=== PATIENT | female | born 1965 | race Caucasian/White ===

== ENCOUNTER 2017-02-10 16:05 | Inpatient (IN) | payer MEDICARE ==
[~2017-02-10] VITALS: Ht 165.1 cm; Wt 67.6 kg
[~2017-02-10 16:05] MED LIST: AMOXICILLIN/POTASSIU PO; ASPIR 8181 MG PO; BENADRYL25 MG PO; BISACODYL SUPP10 MG RECTAL; CATAPRES-TTS 31 EACH TRANSDERM; CIPRO500 MG PO; CLARITIN10 MG PO; CLONIDINE0.1 PO; COMPAZINE10 MG PO; COZAAR 50 MG TA50 M2 PO; DIOVAN HCT 1601 EAC1 PO; DOMPERIDONE PO; DUREZOL5 ML OP; ENOXAPARIN40 MG/0.1 SUBQ; FLAGYL500 MG PO; FLONASE 0.05%50 MCG NASAL; HUMALOG100 UNIT/1 SUBQ; HYDRALAZINE 2525 MG PO; IRON325 PO; KEFLEX500 MG PO; KEPPRA 100100 MG/M1 PO; LEVAQUIN 500 M500 M1 PO; LEVEMIR SQ; LIPITOR10 MG PO; MIRALAX17 GM PO; MUCINEX TA600 MG/TA2 PO; NORCO 5-325 TA1 EACH PO; NORVASC 5 MG TAB5 MG PO; NOVOLOG100 UNIT/1 SQ; NOVOLOG100 UNIT/1 SUBQ; PEPCID20 MG PO; PERCOCET PO; PREDNISONE 5 MG5 M1 PO; PRILOSEC40 MG PO; PROAIR HFA8.5 GM INH; PROBIOTIC1 EAC1 PO; PROTONIX40 M1 PO; REGLAN 10 MG TA10 MG PO; SALINE NASAL SP30 ML NASAL; SINGULAIR 10 MG10 M1 PO; SYNTHROID100 MCG PO; TRAMADOL 50 MG50 MG PO; TRANSDERM-SCO1 PATC1 TD; TYLENOL325 MG PO; XANAX 0.25 MG0.25 MG PO; ZANTAC 150MG T150 MG PO; ZOCOR 10 MG TAB10 MG PO; ZOFRAN ODT4 MG PO
[2017-02-10] MEDS ORDERED: CARVEDILOL12.5 MG PO (17:07)
[2017-02-10] MEDS ORDERED: CIPROFLOXIN HC2.5 M1 OPHTHALMIC (17:08)
[2017-02-10] MEDS ORDERED: DUREZOL5 ML OPHTHALMIC (17:10)
[2017-02-10] MEDS ORDERED: ILEVRO1.7 ML OPHTHALMIC (17:12)
[2017-02-10] MEDS ORDERED: LAMICTAL100 MG PO (17:13)
[2017-02-10] MEDS ORDERED: KEPPRA 500 MG500 M1 PO (17:15)
[2017-02-10] MEDS ORDERED: ZOCOR20 MG PO (17:15)
[2017-02-10] MEDS ORDERED: ALDACTONE25 MG PO (17:16)
[2017-02-10] MEDS ORDERED: DEMADEX20 MG PO (17:17)
--- NOTE | 2017-02-10 20:00 | NUR ---
PT ARRIVED ON FLOOR DURING SHIFT CHANGE. PT IN BED WHEN THIS RN ARRIVED TO DO INITIAL ASSESSMENT. PT ABLE TO CONVERSE APPROPRIATELY, ADMISSION PAPERWORK COMPLETED AND SIGNED. ADMISSION DATABASE COMPLETED. PHOTOGRAPHS TAKEN OF PT COCCYX AND MONTSERRAT AREA, RIGHT GREAT TOE AND RIGHT HEEL AND PLACED IN CHART. PT C/O RIGHT ARM PAIN, TYLENOL GIVEN. PT HAS RAMIREZ AND IS INCONTINENT OF STOOL. PT CLEANED AND BRIEF NOT REPLACED. PT MONTSERRAT AREA VERY RED, BARRIER CREAM APPLIED. PT COOPERATIVE WITH CARES, WILL CONTINUE TO MONITOR.
[2017-02-10 21:32] VITALS: BP 152/70
[2017-02-11 04:06] LABS: HEMATOCRIT 26.3 % (37.0-47.0); HEMOGLOBIN 8.7 gm/dL (12.0-15.0); MCH 31.9 pg (26.0-34.0); MCHC 33.1 g/dL (28.0-37.0); MCV 96.6 fL (80.0-100.0); MPV 9.1 fl. (7.2-11.1); RBC 2.72 mil/uL (4.20-5.00); RDW-CV 15.6 % (10.5-14.5); WBC 9.3 thou/uL (4.0-11.0)
[2017-02-11 04:18] LABS: CALCIUM 7.6 mg/dL (8.5-10.1); CREATININE 4.2 mg/dL (0.6-1.3); POTASSIUM 4.9 mmol/L (3.5-5.1)
--- NOTE | 2017-02-11 05:24 | NUR ---
ASSUMED PT CARE AT 1930. PT ALERT AND ORIENTED X4, POLITE AND COOPERATIVE WITH CARES. ADMITTED FOR DEBILITY. EXTENSIVE HISTORY INCLUDING CVA. C DIFF PRECAUTIONS FOR CHRONIC DIARRHEA. +1 EDEMA IN LOWER EXTREMITIES. RAMIREZ TO DD WITH CLOUDY, YELLOW URINE, NEUROGENIC BLADDER. ACCUCHECKS AC AND HS. MONTSERRAT AREA RED AND EXCORIATED. NAIL TO GREAT TOE ON LEFT FOOT BLUE/BLACK. PT HAD PAIN IN RIGHT ARM, TYLENOL GIVEN. PT TAKES PILLS WHOLE WITH WATER A FEW AT A TIME WITHOUT DIFFICULTY. CALL LIGHT AND FREQUENTLY USED ITEMS WITHIN REACH. USES CALL LIGHT APPROPRIATELY. HOURLY ROUNDING IN PROGRESS, WILL CONTINUE TO MONITOR.
[2017-02-11 07:50] VITALS: BP 165/78
--- NOTE | 2017-02-11 10:14 | NUR ---
Nutrition: Consult received. Pt admitted to rehab with debility. Eating 25% of BKFST. 2gm Na diet. Wt is stable, 190s. H/o DM, neuropathy, gastroparesis, PEG. Pressure ulcer on coccyx. Albumin 3.5. +BM yday. Low risk at this time. Will follow po intake and labs weekly.
--- NOTE | 2017-02-11 11:00 | NUR ---
Nutrition follow up: Per RN, pt on HD. Pt is familiar with renal and is requesting one. RD ordered Renal diet.
--- NOTE | 2017-02-11 15:31 | NUR ---
WOUND NURSE: PATIENT NOT AVAILABLE SHE IS SPEAKING TO , BUT WOUND CARE BASED ON PHOTOS IS FOLLOWS: PATIENT WITH RED, MACULAR RASH WITH IRRITATION NOTED ON BILATERAL BUTTOCKS AND MOST LIKELY RELATED TO INCONTINENCE. RECOMMENDED PHYTOPLEX AF MOISTURE BARRIER EVERY SHIFT. PATIENT WITH LESS THAN DIME SIZED AREA OF ECCHYMOSIS ON RIGHT HEEL -- NO INTERVENTION SUGGESTED AT THIS TIME. PATIENT WITH BLACKENED LT GREAT TOE -- SUSPECT TRAUMA RELATED, BUT INTACT AND STABLE SCAB IN PLACE -- NO INTERVENTION RECOMMENDED AT THIS TIME.
--- NOTE | 2017-02-11 16:19 | NUR ---
SW met with pt to complete initial assessment, introduce self, and SW role on rehab unit. Pt alert and oriented and talkative. Pt lives in a mobile home with her who works and her son who doesn't work and helps take care of pt. Pt has a shower chair, walker, bsc, and a wc but the wc is older and borrowed so she said it is not in great shape. Pt had HH services through [facility] in the past but she said that she was disappointed that the nurse concentrated on the meds every visit and she wanted to do more PT so she said she may want to try a different HH agency. Pt is new to dialysis and SW discussed possibility of SW needing to assist with arranging dialysis at [place]. Pt lives near [place] and would want to remain with Dr Solis's group so she said she heard about dialysis clinic on [address] that she would want to see if she could go there if needed. Pt said she is also dealing with the change of needing a marie catheter and many stressors in her life over the last few years. SW and pt discussed resources such as food pantrys, information on renal diet, etc. Pt expressed desire to find out more about how to develop a will and that she wants to have a plan B for her body disposal if she is not able to donate her body to science if she has to have her toe amputated. Pt said she does not want to have to have her family deal with too many things upon her . Pt said she would want to have hospice services near the end of her life if that is presented to her. SW to continue to follow to assist with safe dc planning.
--- NOTE | 2017-02-11 16:34 | NUR ---
ASSUMED CARE AT 0730. ALERT ORIENTED PLEASANT COOPERATIVE. HX OF DEBILITY. TRANSFERS WITH 1 ASSIST G BELT WALKER. TAKES MEDS WITH WATER WITHOUT DIFFICULTY. FEEDS SELF APPETITE FAIR AT BREAKFAST GOOD AT LUNCH DIET CHANGED TO RENAL PER PT. REQUEST. PT. ON DIALYSIS THREE TIMES PER WEEK. EDEMA PRESENT BLES ELEVATED WHILE UP IN RECLINER AND NOT PARTICIPATING IN THERAPIES. DOES HAVE RAMIREZ CATHETER TO DD BAG CLOUDY YELLOW URINE TO DD BAG. HX OF NEUROGENIC BLADDER. REDNESS EXCORIATION PERIANAL AREA NO OPEN AREA. OBTAINED PHYTOPLEX ANTIFUNGAL OINTMENT FOR MONTSERRAT AREA AFTER WOUND NURSE HERE THIS AFTERNOON. PARTICIPATIN THERAPIES THROUGHOUT THE DAY. MOVED TO ROOM 328 FROM 325 THIS AFTERNOON.USES CALL LIGHT APPROPRIATELY FOR ASSISTANCE.
[2017-02-11 17:42] VITALS: BP 181/84
[2017-02-11 20:28] VITALS: BP 150/77
--- NOTE | 2017-02-11 23:18 | NUR ---
ASSUMED CARE AT 1930. PATIENT S/P DELIBITY. RESTING IN BED. ABLE TO TURN SIDE TO SIDE. POSITIONED WITH PILLOWS. TAKES PILLS WHOLE WITH PUDDING, FEEDS SELF THE MEDS ONCE THEY ARE PLACED INTO THE PUDDING. REFUSED STOOL SOFTENER. DIALYSIS PORT TO RT CHEST C/D/I. INCONTINENT OF SOFT STOOL WITH APPEARANCE OF SOME UNDIGESTED FOOD, SKIN CARE PERFORMED, LINENS CHANGED AND IMMEDIATELY HAD ANOTHER INCONTINENT STOOL DURING LINEN CHANGE. SKIN CARE PERFORMED AGAIN. EDEMA TO BILAT LEGS. RAMIREZ DRAINING MARIANA URINE. RAMIREZ CARE ALSO DONE WITH SKIN CARE. HISTORY OF NEUROGENIC BLADDER. BUTTOCKS PINK, ANTIFUNGAL MOISTURE BARRIER APPLIED. POSITIONED ON SIDE. HOURLY ROUNDS CONTINUE. BED ALARM ON. CALL LITE IN REACH. DENIES PAIN.
--- NOTE | 2017-02-12 05:43 | NUR ---
SLEPT MOST OF THE NIGHT. TURNS SELF EASILY IN BED, AND WAS FOUND NEARLY ON STOMACH. NO FURTHER INCONTINENCE OF STOOL EXCEPT EPISODE PREVIOUSLY DESCRIBED OF THIS WRITING. DENIES PAIN. HOURLY ROUNDS CONTINUE. BED ALARM ON. CALL LITE IN REACH.
[2017-02-12 07:30] VITALS: BP 154/73
--- NOTE | 2017-02-12 16:15 | NUR ---
ASSUMMED CARE OF PT AT 0730, PT COMPLAINED OF NAUSEA, NO EMESIS NOTED, ORDER FROM PHYSICIAN OBTAINED FOR ANTIEMETIC, MED GIVEN PT OBTAINED SOME RELIEF, PT DID EAT ALMOST 100% OF BOTH BREAKFAST AND LUNCH, PT REFUSED HER AM MEDICATIONS, DID AGREE TO GET OUT OF BED INTO CHAIR FOR LUNCH, WAS AGREEABLE TO TAKE SOME OF HER MEDICATIONS, DID TALK TO DIALYSIS NURSE AND SHE STATED I SHOULD HOLD HER COREG DUE TO UPCOMING DIALYSIS, PT WENT TO DIALYSIS AT 1400, BP ELEVATED IN DIALYSIS AND NURSE REQUESTED COREG BE GIVEN, PT HAS ACCESS IN RIGHT UPPER CHEST, EDEMA NOTED BILATERALY IN LE, LEGS ELEVATED, BILATERAL BUTTOCKS RED , ANTI FUNGAL BARRIER OINTMENT APPLIED RAMIREZ PATENT, PT HAD MODERATE INCONTINENT STOOL, PT UNAWARE THAT SHE HAD STOOL IN BED, PT BLOOD SUGARS ELEVATED, WILL INFORM PHYSICIAN ON ROUNDS, HOURLY ROUNDING COMPLETED, PARTICIPATED IN THERAPIES, ASSESSMENT COMPLETE, WILL CONTINUE TO MONITER.
[2017-02-12 18:49] VITALS: BP 132/44
[2017-02-12 21:00] VITALS: BP 149/81
--- NOTE | 2017-02-12 23:26 | NUR ---
ASSUMED CARE AT 1930. PATIENT S/P DEBILITY. SITTING IN RECLINER. VISITED WITH . TAKES PILLS WHOLE IN VANILLA PUDDING. RAMIREZ DRAINING MARIANA URINE. SOME MEDICATION TIMES ADJUSTED IN LIGHT OF GIVING THEM AROUND PATIENT'S NAUSEA THIS AM AND DIALYSIS. SEE MAR. DENIES PAIN. INCONTINENT OF STOOL, ASKS NURSING TO "CHECK HER" WHEN SHE THINKS SHE IS INCONTINENT. TOTAL CARES DONE WITH INCONTINENT STOOLS. BOTTOM RED, ANTI FUNGAL MOISTURE BARRIER APPLIED. DR. JORDAN ROUNDED, NEW ORDERS. PATIENT STATES THAT SHE OFTEN NEEDS IV MEDICINES DURING DIALYSIS FOR HER BLOOD PRESSURE. LOW DOSE SSI STARTED. PATIENT FAMILIAR WITH SSI. TURNS SELF EASILY IN BED. POSITIONED WITH PILLOWS. HOURLY ROUNDING CONTINUES. BED ALARM ON. CALL LITE IN REACH.
[2017-02-13 04:11] LABS: HEMATOCRIT 26.6 % (37.0-47.0); HEMOGLOBIN 8.9 gm/dL (12.0-15.0); MCH 31.9 pg (26.0-34.0); MCHC 33.4 g/dL (28.0-37.0); MCV 95.6 fL (80.0-100.0); RBC 2.78 mil/uL (4.20-5.00); RDW-CV 15.1 % (10.5-14.5); WBC 8.1 thou/uL (4.0-11.0)
[2017-02-13 04:22] LABS: ALBUMIN 1.9 g/dL (3.4-5.0); CALCIUM 7.4 mg/dL (8.5-10.1); CREATININE 3.4 mg/dL (0.6-1.3); MAGNESIUM 1.7 mg/dL (1.8-2.4); POTASSIUM 3.8 mmol/L (3.5-5.1); TOTAL BILIRUBIN 0.2 mg/dL (<0.1-1.0); TOTAL PROTEIN 5.3 g/dL (6.4-8.2)
--- NOTE | 2017-02-13 05:39 | NUR ---
SLEPT MOST OF THE NIGHT. INCONTINENT OF STOOL TWICE TOTAL THIS SHIFT. TURNS SELF EASILY. TAKES PILLS WITH VANILLA PUDDING. C/O HEADACHE AND NECK PAIN, APAP GIVEN WITH 0700 MEDS PER REQUEST. RAMIREZ DRAINING MARIANA URINE. HOURLY ROUNDS CONTINUE. BED ALARM ON. CALL LITE IN REACH.
[2017-02-13 07:45] VITALS: BP 164/82
--- NOTE | 2017-02-13 13:22 | CON ---
[address] [address] CONSULTATION Name: EZEQUIEL MOYA Room: [address] ADM IN M.R.#: [id number] Admission: 02/10/17 Attend Phys: Iona Gonzalez DO Discharge: Date of : 63 Report #: [id number] THIS REPORT FOR: //name// CC: Demetrius Gonzalez NEPHROLOGY CONSULTATION The patient is on the rehab unit at [facility]. She is in room 328. REASON FOR CONSULTATION: I am asked to see this 52-year-old woman who has recently become dialysis dependent and is on 3 time weekly hemodialysis. In questioning her, she states that she does not have a chronic unit as all of this is "brand new to her." She was at [facility] presenting there at [facility] on 01/28. She had shortness of breath and edema. She had a creatinine of 4.8, a glucose of 331 and a hemoglobin of 8.5. She was significantly debilitated from her chronic medical issues. She had been living independently and able to perform her activities of daily living. She is awake and alert, but her ability to recall details related to her present or past illness is a bit limited. PAST MEDICAL HISTORY: Hypertension, diabetes, obstructive sleep apnea, chronic kidney disease, but now on dialysis at this time. She has had acute renal failure. She has history of peripheral vascular disease, CVA, anemia, asthma, chronic edema, C. diff colitis, esophagitis, chronic fatigue, gastroparesis, GERD, hyperlipidemia, hypothyroidism, neuropathy, seizures, thyroid nodule, urine incontinence, benign colonic polyps and diabetic retinopathy. PAST SURGICAL HISTORY: Appendectomy, hysterectomy, colectomy, tracheostomy and an I and D of an abscess. FAMILY HISTORY: Positive for vascular disease and hypertension. SOCIAL HISTORY: She is a former tobacco user. No alcohol, no recreational drugs. She lives in a mobile home. She does have family that helps her with her activities. ALLERGIES: MARGARITA INHIBITORS, LIDOCAINE, MORPHINE, OXYCODONE, CIPROFLOXACIN, NICKEL WELL GENTAMICIN, OPIOIDS. CHRONIC MEDICATIONS: Per her reconciliation sheet showed that she has been on ferrous sulfate 325 mg daily with breakfast, simvastatin 20 mg at bedtime, carvedilol 12.5 mg b.i.d., valsartan and hydrochlorothiazide 160/25 one daily, spironolactone 25 mg 1-1/2 tablet b.i.d., aspirin 81 mg daily, acetaminophen 325 mg q. 4 p.r.n., Lamictal 25 mg daily. She is on levetiracetam 250 mg b.i.d., zolpidem 5 mg at bedtime, torsemide 40 mg b.i.d., hydrochlorothiazide 25 [place] [address] CONSULTATION Name: EZEQUIEL MOYA Room: [address] IN [facility].#: [id number] Admission: 02/10/17 Attend Phys: Iona Gonzalez DO Discharge: Date of : 63 Report #: [id number] bedtime, ciprofloxacin eyedrops 0.3% one drop q. 2 hours to right eye. She is also on Durezol 5 mL drops q. 2 hours to the right eye, fluticasone nasal spray 2 sprays daily and nepafenac 1 ophthalmologic drop in the right eye at bedtime, antacids, Mylanta or equivalent 30 mL q. 4 p.r.n., probiotic one capsule b.i.d., bisacodyl rectal suppository 10 mg daily or 100 mg of oral docusate b.i.d. or milk of magnesia 10 mL daily or Fleet Enema as needed. She is also on ondansetron 4 mg q. 6, metoclopramide 10 mg q. 6, lactobacillus 1 tablet b.i.d., insulin per schedule, l-thyroxine 125 mcg daily. REVIEW OF SYSTEMS: HEENT: No recent changes in vision. CARDIAC: No chest pain. PULMONARY: No shortness of air at present. She does feel waterlogged. She says she has had about 50 extra pounds in weight, which was attempting to be removed with dialysis. She was short of air on admission to [facility] and is still this way, but not as badly as she was before. GASTROINTESTINAL: Positive constipation. GENITOURINARY: Worsened acute kidney injury superimposed on chronic kidney disease leading to dialysis. HEMATOLOGIC AND LYMPHATIC: Anemia. MUSCULOSKELETAL: Weakness exacerbated by fluid overload. ENDOCRINE: Hypothyroid, type 2 DM. PSYCHIATRIC: Unable to evaluate. SKIN AND INTEGUMENT: No worrisome lesions. NEUROLOGIC: History of CVA. No history of Parkinson disease or seizure disorder. Other 14-point review of systems as above. PHYSICAL EXAMINATION: GENERAL: She is awake. She is somewhat limited on her recall of her recent history. VITAL SIGNS: Show a temp of 36.8, T-max 37.1, heart rate 60s, respirations 18, blood pressure 210/109, it has been as low as 150/73. HEENT: Atraumatic. NECK: Supple. CHEST: Generally clear. HEART: S1, S2. ABDOMEN: Obese, soft, positive bowel sounds. EXTREMITIES: Show edema in both of the lower legs, thighs and lower abdomen. She also has some edema in her right and left upper extremity. NEUROLOGIC: Cranial nerves, sensory, motor did not show any focal or acute findings from her recent status at [facility]. She is cooperative. LABORATORY DATA: Shows a white count of 9300; hemoglobin 8.7; hematocrit 26.3; platelets 215,000. Chemistry shows a sodium of 130, potassium 4.9, chloride 93, CO2 27, BUN 45, creatinine 4.2, glucose 186, calcium 7.6. [place] [address] CONSULTATION Name: EZEQUIEL MOYA Room: [address] [facility].#: [id number] Admission: 02/10/17 Attend Phys: Iona Gonzalez DO Discharge: Date of : 63 Report #: [id number] IMAGING STUDIES: Include a toe x-ray done yesterday that showed the left great toe appeared intact without fractures or dislocation. IMPRESSION: 1. Acute kidney injury, now dialysis dependent. I do not know if this is all acute kidney injury or whether she has progressive chronic kidney disease that has now become end-stage renal disease. We will need to continue searching for her prior records. 2. Type 2 diabetes mellitus, insulin-dependent. 3. Recent shortness of air and edema. 4. Hypertension. 5. Obstructive sleep apnea. 6. Prior chronic kidney disease, stage 3-4. 7. Peripheral vascular disease. 8. History of cerebrovascular accident. 9. Anemia. 10. Asthma. 11. Chronic edema with acute exacerbation. Presently, the patient states she has about 50-55 pounds with excessive fluid on board. 12. Recent Clostridium difficile colitis. 13. History of esophagitis. 14. Chronic fatigue. 15. Gastroparesis. 16. Gastroesophageal reflux disease. 17. Hyperlipidemia. 18. Hypothyroidism. 19. Neuropathy. 20. Seizures. 21. Diabetic retinopathy. PLAN: We will dialyze Tuesday, and Tuesday while on the rehab unit and further recommendations to follow. We will watch for any signs of recovery while obtaining records from [facility] and note her urological and nephrological assessment there. <ELECTRONICALLY SIGNED> By: Albertina Stern MD 02/13/17 1322 1514 [id number] Stern MD /nt
--- NOTE | 2017-02-13 19:00 | NUR ---
AM ASSESSMENT AND VITAL SIGNS COMPLETED DOCUMENTED. PT C/O NAUSEA AFTER EATING 90% OF HER BREAKFAST, ZOFRAN GIVEN X1 WITH NO FURTHER COMPLAINTS. PT ALSO STATED SHE FELT LIKE HER BLADDER WAS FULL, CATHETER FLUSHED WITH IMMEDIATE RETURN OF 1000 CC OF PALE YELLOW URINE. THIS EVENING SHE COMPLAINED AGAIN, CATHETER FLUSHED WITH RETURN OF [address] SHELBY ROUNDED AND ASKED THAT THE CATHETER BE REPLACED WHEN SHE GOES TO BED TONIGHT. PT NEEDS A LOT OF ENCOURAGEMENT TO TRY TO DO MORE FOR HERSELF. HOURLY ROUNDING AND FALL PRECAUTIONS IN PLACE.
[2017-02-13 20:17] VITALS: BP 182/83
--- NOTE | 2017-02-13 23:44 | NUR ---
ASSUMED CARE AT 193. PATIENT S/P DEBILITY. RESTED IN RECLINER UNTIL ABOUT 2214. WAS INCONTINENT OF STOOL AROUND 1999, PATIENT ABLE TO STAND USING WALKER, GAIT BELT, WHILE NURSING DID PERICARE. ALSO HAD BM PER TOILET AT HS. PERIRECTAL, BUTTOCKS, AND INNER THIGHS PINK, BUT IMPROVED. ANTIFUNGAL MOISTURE BARRIER APPLIED. TAKES PILLS IN VANILLA PUDDING, SPOONS THEM HERSELF. UP WITH SBA, GAIT BELT, WALKER. INCONTINENT OF MORE STOOL IN BED JUST PRIOR TO CHANGING RAMIREZ. PERICARE DONE AGAIN AND CHUX CHANGED. RAMIREZ CATH CHANGED AT USING STERILE TECHNIQUE WITHOUT DIFF. RETURN OF CLOUDY YELLOW URINE. TOLERATED WELL. MOVES WELL IN BED, HAS GOOD ROM AND BED MOBILITY. TURNS SELF. RAMIREZ DRAINING WELL NOW. DENIES PAIN. HOURLY ROUNDS CONTINUE, BED ALARM ON. CALL LITE IN REACH.
[2017-02-14 03:34] LABS: ABSOLUTE BASOPHILS 0.1 thou/uL (0.0-0.2); ABSOLUTE EOSINOPHILS 0.2 thou/uL (0.0-0.7); ABSOLUTE LYMPHOCYTES 1.6 thou/uL (0.8-5.3); ABSOLUTE MONOCYTES 1.1 thou/uL (0.0-1.2); ABSOLUTE NEUTROPHILS 5.9 thou/uL (1.6-8.1); BASOPHILS 0.7 %; EOSINOPHILS 2.1 %; HEMOGLOBIN 9.1 gm/dL (12.0-15.0); MCH 32.1 pg (26.0-34.0); MCHC 33.6 g/dL (28.0-37.0); MCV 95.6 fL (80.0-100.0); MPV 8.7 fl. (7.2-11.1); NUCLEATED RBCS 0 /100WBC; PLATELET COUNT* 256 thou/uL (150-400); POLYS 67.2 %; RBC 2.82 mil/uL (4.20-5.00); RDW-CV 15.1 % (10.5-14.5); WBC 8.8 thou/uL (4.0-11.0)
[2017-02-14 03:49] LABS: CALCIUM 7.8 mg/dL (8.5-10.1); MAGNESIUM 1.7 mg/dL (1.8-2.4); PHOSPHORUS* 5.8 mg/dL (2.5-4.9)
[2017-02-14 03:51] LABS: CREATININE 4.4 mg/dL (0.6-1.3)
--- NOTE | 2017-02-14 06:10 | NUR ---
SLEPT MOST OF THE NIGHT. TURNED SELF. AROUND 0530 C/O NEEDING TO BE "CLEANED UP" INCONTINENT OF STOOL. LINENS CHANGED, SKIN CARE DONE. AF MOISURE BARRIER APPLIED. THEN C/O HEAD AND NECK PAIN. NURSE WENT IMMEDIATELY TO GET APAP AND HER MORNING THYROID MEDICINE PER HER REQUEST. UPON RETURN PATIENT C/O NAUSEA AND DIDN'T WANT THOSE MEDICINES. REQUESTED AND RECEIVED ZOFRAN FOR NAUSEA AT 0542. THIS TAKEN WTIH SMALL AMOUNT OF WATER. NO EMESIS NOTED. AT 0610 THIS NURSE RETURNED TO ROOM TO CHECK ON EFFECTIVENESS OF MED, PATIENT SOUND ASLEEP IN SEMI TEJEDA'S POSITION. APAP AND THYROID HELD AT THIS TIME. HOURLY ROUNDS CONTINUE. CALL LITE IN REACH. BED ALARM ON.
[2017-02-14 09:00] VITALS: BP 173/90
--- NOTE | 2017-02-14 16:32 | NUR ---
ASSUMMED CARE OF PT AT 0730, PT ALERT AND ORIENTED, PT TRANSFERS WITH SBA, GB AND WALKER, RAMIREZ PATENT AND DRAINING YELLOW URINE, PT COMPLAINED OF EMERY THIS AM, MEDICATED PER ORDER WITH GOOD RELIEF, PT ALSO COMPLAINS OF NAUSEA, REFUSED TO TAKE MEDS UNTIL LATER MORNING, PT DID EAT 100% OF BREAKFAST AND LUNCH TRAY, PT INCONTINENT OF MODERATE STOOL X 1 THIS SHIFT, BUTTOCKS AREA REDDENED, ANTI FUNGAL BARRIER OINTMENT APPLIED, EDEMA IN LOWER EXTREMITIES, ELEVATED, PARTICIPATED IN ALL THERAPIES, HOURLY ROUNDING COMPLETED, ASSESSMENT COMPLETE, WILL CONTINUE TO MONITER.
[2017-02-14 20:16] VITALS: BP 191/88
[2017-02-15 05:01] LABS: ABSOLUTE BASOPHILS 0.1 thou/uL (0.0-0.2); ABSOLUTE EOSINOPHILS 0.3 thou/uL (0.0-0.7); ABSOLUTE LYMPHOCYTES 1.9 thou/uL (0.8-5.3); ABSOLUTE MONOCYTES 1.2 thou/uL (0.0-1.2); ABSOLUTE NEUTROPHILS 7.1 thou/uL (1.6-8.1); BASOPHILS 0.7 %; HEMATOCRIT 29.5 % (37.0-47.0); HEMOGLOBIN 9.7 gm/dL (12.0-15.0); LYMPHOCYTES 17.7 %; MCH 31.6 pg (26.0-34.0); MCV 95.6 fL (80.0-100.0); MONOCYTES 11.1 %; MPV 8.9 fl. (7.2-11.1); NUCLEATED RBCS 0 /100WBC; PLATELET COUNT* 303 thou/uL (150-400); POLYS 67.5 %; RBC 3.08 mil/uL (4.20-5.00); RDW-CV 15.3 % (10.5-14.5); WBC 10.5 thou/uL (4.0-11.0)
[2017-02-15 05:02] LABS: CALCIUM 7.8 mg/dL (8.5-10.1); CREATININE 4.8 mg/dL (0.6-1.3); POTASSIUM 4.4 mmol/L (3.5-5.1)
--- NOTE | 2017-02-15 05:14 | NUR ---
ASSUMED PT CARE AT 1930. PT ALERT AND ORIENTED X4, SITTING UP IN RECLINER AT SHIFT CHANGE. PT TRANSFERS WITH SBA, GAIT BELT AND WALKER. RAMIREZ TO DD, DRAINING YELLOW URINE WITHOUT DIFFICUTLY. NO C/O PAIN OR NAUSEA. STOOL X1 IN TOILET, ANTI-FUNGAL BARRIER CREAM APPLIED TO REDDENED BUTTOCKS. EDEMA TO LOWER EXTREMITIES BILAT, ELEVATED ON PILLOWS. CALL LIGHT AND FREQUENTLY USED ITEMS WITHIN REACH. USES CALL LIGHT APPROPRIATELY. HOURLY ROUNDING IN PROGRESS, WILL CONTINUE TO MONITOR.
[2017-02-15 07:00] VITALS: BP 175/83
--- NOTE | 2017-02-15 14:57 | NUR ---
ASSUMED CARE AT 0730. ALERT ORIENTED, CALM COOPERATIVE. HX OF DEBILITY, PT. IS ON DIALYSIS THREE TIMES A WEEK. TRANSFERS WITH ALEX CUBA. RAMIREZ PATENT WITH YELLOW URINE TO DD BAG. PT. C/O NAUSEA AND A HEADACHE MEDICATED WITH TYLENOL AND PHENERGAN PER REQUEST. TAKES MEDS WITHOUT DIFFICULTY WITH WATER. REFUSED SCOPALAMINE PATCH SHE SAID IT WOULD CAUSE INTERACTION WITH [facility] PER HER NEUROLOGISTS INFO. BLES EDEMA PRESENT. PARTICIPATING IN THERAPIES THIS A.M. DIALYSIS AT 1400. APPETITE POOR BREAKFAST BUT GOOD AT LUNCH. FEEDS SELF.
--- NOTE | 2017-02-15 15:30 | NUR ---
SW faxed initial paperwork to [facility] for [facility] to assess for possible admission. SW to continue to follow to assist with safe dc planning.
[2017-02-15 20:55] VITALS: BP 141/73
--- NOTE | 2017-02-16 01:58 | NUR ---
ASSUMED CARE @ 1950-02/15-.AWAKE IN BED W/ HOB UP ON HER RIGHT SIDE WATCHING TV.BED ALARM PUT ON @ 1949.SIDERAILS PADDED X4.SLEEPING @ 2208-BUT AWAKENED FOR HS MEDS.TWO PORTS DIALYSIS CATHETER INTACT RIGHT UPPER CHEST.TURNS SELF @ NIGHT.ON HOURLY ROUNDS.ERCO MACHINE OPERATOR DOING ODD HOUR ROUNDS.
--- NOTE | 2017-02-16 07:29 | NUR ---
denies headache during night.INC BM X3.ANTI FUNGAL CREAM APPLIED TO PINK COCCYX AREA AFTER EACH BM.BOWEL ACCIDENTS X3.SLEEPING SINCE 0.TOOK ONLY 160 ML STRAWBERRY BOOST HS SNACKS.DAILY WEIGHT.TODAY-174.0 LBS.STOOLS LOOSE 3RD DURING NIGHT @ 0400.FOUL SMELLING STOOL. SENT TO LAB @ 0405 FOR C DEF. ISOLATION CART BROUGHT TO UNIT @ 0600.REQUESTED PRN ZOFRAN ORAL @ 0637 TO PREVENT NAUSEA @ BREAKFAST.INC STOOLS X3.
[2017-02-16 08:12] VITALS: BP 165/84
[2017-02-16 14:07] LABS: HEPATITIS B SURFACE AG Negative (Negative)
--- NOTE | 2017-02-16 15:41 | CON ---
[address] [address] CONSULTATION Name: EZEQUIEL MOYA Room: [address] IN .R.#: [id number] Admission: 02/10/17 Attend Phys: Iona Gonzalez DO Discharge: Date of : 63 Report #: [id number] THIS REPORT FOR: //name// CC: Demetrius Gonzalez DATE OF SERVICE: 02/15/2017 CHIEF COMPLAINT: Podiatric consultation for toenail debridement and evaluation of her left great toenail, which is black. The patient is a type 2 diabetic. The patient is currently dialyzing, she relates a black discoloration of left great toenail of unknown origin. She relates history of PAD with 2-vessel patency. She denies prior vascular surgery intervention. PHYSICAL EXAMINATION: The patient's left great toenail has dry subungual hematoma with no inflammation, drainage, granulation or cardinal signs of infection. Her toes are dystrophic consistent with onychomycosis. Her feet are warm with palpable pedal pulses and immediate digital capillary refill +4 edema to both legs. IMPRESSION: Onychomycosis, dried subungual hematoma, left hallux. PLAN: I debrided her toenails manually x 10. She is to follow up with her regular airline security representative, Dr. Hernandes as an outpatient. <ELECTRONICALLY SIGNED> By: Charles Hurtado DPM 02/16/17 1541 1732 Zina Hurtado DPM /feliciano
--- NOTE | 2017-02-16 16:55 | NUR ---
SW met with pt to review team conference summary. Plan for pt to remain on rehab and continue therapies and for team to reassess pt length of stay during team conference next Tuesday. SW relayed team's report that pt is CGA with transfers, supervision walking 140 ft with FWW, min assist with stairs-3 steps, supervision with grooming, bathing, UB dressing and mod assist with LB dressing, mod I with comprehension, expression, supervision with problem solving and memory; with barriers of decreased vision, decreased attention to task, weakness, decreased balance, edema, right foot drop, low endurance, and fatigue. Pt in agreement with plan and continues to express that she feels making sure "water weight is taken off" holds great importance. SW to continue to follow to assist with safe dc planning.
--- NOTE | 2017-02-16 18:31 | NUR ---
ASSUMED CARE AT 0730. ALERT ORIENTED PLEASANT COOPERATIVE. HX OF DEBILITY OLD CVA AND HX OF SEIZURES. TRANSFERS WITH SBA G BELT WALKER FEEDS SELF AND TAKES MEDS WITHOUT DIFFICULTY WITH WATER. RAMIREZ PATENT WITH YELLOW URINE TO DD BAG. USES CALL LIGHT APPROPRIATELY FOR ASSIST BED CHAIR ALARM ON FOR PT. SAFETY. PT. HAS PARTICIPATED IN THERAPIES THROUGHOUT THE DAY UP IN RECLINER WITH BLES ELEVATED EDEMA PRESENT LASIX 80 MG. PO GIVEN PER DR. ALMENDAREZ. PT. WAS PUT IN CONTACT ISOLATION DUE TO HAVING SOFT LOOSE STOOLS ON RAIL EQUIPMENT OPERATOR. STOOL SENT WAS NOT SUFFICIENT AMT. FOR TEST. PT. HAD ONE SOFT BM IN PULLUPS AND A SMALL AMT IN TOILET. BM NOT HAVING ODOR, PTS. ONLY C/O BEING COLD THIS AFTERNOON WARM BLANKETS PROVIDED FIANCEE HERE FOR SUPPER PT. TO FOR MEALS AMBULATORY.
[2017-02-16 19:30] VITALS: BP 120/62
--- NOTE | 2017-02-17 05:54 | NUR ---
ASSUMED CARES AT 1920. PT ALERT AND ORIENTED. C/O PAIN TO BACK AND SO TYLENOL GIVEN. SHE IS A MIN ASSIST WITH GAIT BELT AND WALKER. UP TO BATHROOM X 1 AND DID HAVE STOOL INCONTINENCE WELL. BUTTOCK/PERIRECTAL AREA IS PINK. ANTIFUNGAL CREAM APPLIED. STAFF ASSISTED WITH ALL CARES. PT TURNS SELF VERY WELL IN BED. LIKES TO SLEEP ON SIDE. CALL LIGHT IN REACH AND BED ALARM ON.
[2017-02-17 07:54] VITALS: BP 161/75
--- NOTE | 2017-02-17 14:10 | NUR ---
WOUND NURSE: PATIENT SEEN FOR FOLLOW UP ASSESSMENT OF BUTTOCK RASH AND RIGHT HEEL LESION. THERE IS NO CHANGE IN RIGHT HEEL -- PRESENTS A <DIME SIZED AREA OF ECCHYMOSIS, NO OPEN WOUND; HOWEVER, PATIENT STATES SITE IS TENDER, SO WILL ADD HEELMEDIX HEEL PROTECTIVE BOOT WHEN IN BED FOR PROTECTION. NO FURTHER RASH TO BUTTOCKS, BUT IS SLIGNTLY PINK. WILL CONTINUE PHYTOPLEX 2X/DAY AND NEEDED FOR PROTECTIONS FROM INCONTINENCE. PATIENT INSTRUCTED ON MEASURES TO PROMOTE HEALTH AND PREVENT FUTURE BREAKDOWN AND WITH GOOD UNDERSTANDING ACHIEVED.
[2017-02-17 17:41] LABS: CALCIUM 8.7 mg/dL (8.5-10.1); CREATININE 5.1 mg/dL (0.6-1.3)
--- NOTE | 2017-02-17 18:32 | NUR ---
PT IN DIALYSIS NOW AND REMAINS ALERT AND ORIENTATED. TUNNELED CATHETER TO RT. CHEST USED FOR DIALYSIS. RAMIREZ TO DD WITH CLEAR YELLOW URINE INPLACE. PT DENIES PAIN BUT HAS HAD NAUSEA X2 WITH SMALL EMISIS AFTER BREAKFAST AND LUNCH WITH ZOFRAN GIVEN THIS AM AND PT IS ON REGLAN SCHEDUALED. PT HAS HAD LOOSE BM X2 WITH ASSIST WITH MONTSERRAT CARE AND RAMIREZ CARE. BARRIER CREAM PLACED TO MONTSERRAT AREA, ANTIFUNGAL CREAM. PRAFO BOOT TO RT FOOT TO PROTECT HEAL. PT WORKED WITH THERAPIES TODAY. PT CONTINUES TO PROGRESS TOWARDS GOALS AND HOURLY ROUNDING CONTINUES.
[2017-02-17 20:00] VITALS: BP 176/84
--- NOTE | 2017-02-18 05:30 | NUR ---
ASSUMED CARES AT 1920. PT RETURNED FROM DIALYSIS AT 1999. ALERT AND ORIENTED. ATE SUPPER. TAKES PILLS IN VANILLA PUDDING. RAMIREZ CATHETER DRAINING YELLOW URINE. BLE EDEMA. HAS OFF LOADING BOOT TO RIGHT FOOT. LEGS UP ONTO PILLOW IN BED. DENIES ANY FURTHER N/V. WAS INCONTINENT OF SOFT STOOL. STAFF DID ALL CARES. BUTTOCKS ARE PINK. BARRIER CREAM APPLIED. PT TURNS SELF VERY WELL IN BED AND LIKES TO SLEEP ON SIDES. CALL LIGHT IN REACH AND BED ALARM ON.
[2017-02-18 07:30] VITALS: BP 176/88
--- NOTE | 2017-02-18 10:47 | NUR ---
IVAN followed up with [facility] who did not receive or ever respond to IVAN fax about possible admission at pt dc. IVAN also discovered that pt preference for Dr Solis's group is actually [facility] not [facility]. IVAN called [facility] at [phone] and was instructed to discuss possible admission with IVAN Garcia who was not available. IVAN was unable to leave a message as the phone line for her just kept ringing. IVAN tried [phone] ([facility] location) and was told that IVAN Garcia wouldn't be back until Tuesday. IVAN to call on Tuesday and continue to try to establish a possible dialysis center to accept pt upon dc from hospital.
--- NOTE | 2017-02-18 16:40 | NUR ---
ASSUMED CARE AT 0730. ALERT ORIENTED PLEASANT COOPERATIVE. HX OF DEBILITY. ALSO RENAL FAILURE ON DIALYSIS 3 X WEEK. HAS DIALYSIS ACCESS RT. CHEST. HAS HAD C/O NAUSEA TODAY CLINICAL RESEARCH TECHNICIAN GAVE ZOFRAN THEN PHENERGAN PO. ATE 70% MEAL A.M. THEN 100% LUNCH. PARTICIPATING IN THERAPIES THROUGHOUT THE DAY. RAMIREZ PATENT WITH YELLOW URINE TO DD BAG. HAD ONE LARGE SOFT SEMIFORMED GREEN STOOL IN PULLUPS AND IN BSC. PERICARE GIVEN AND RAMIREZ CARE AFTER BM. TRANSFERS WITH SBA G BELT WALKER AND AMBULATED TO THIS AFTERNOON HAD VERY SMALL BM IN TOILET SEMI FORMED. UP IN RECLINER AT BEDSIDE WITH BLES ELEVATED WHEN NOT IN THERAPIES HAS EDEMA PRESENT. WEARS PRAFO BOOT RT. FOOT IN BED. DENIES PAIN OR OTHER REQUESTS.
--- NOTE | 2017-02-18 18:42 | NUR ---
PT. ATE COMPLETE SUPPER WITHOUT C/O NAUSEA. DR. JORDAN ROUNDED. UP IN RECLINER AFTER SUPPER.
[2017-02-18 20:28] VITALS: BP 135/81
--- NOTE | 2017-02-19 02:23 | NUR ---
ASSUMED CARE @ 1939-02/18-TUESDAY.SITS IN RECLINER W/ TJ VISITING @ THIS TIME.BOTH WATCHING TV.CHAIR ALARM ALREADY ON @ 1939.TAKES BIG PILLS BROKEN IN HALF W/ VANILLA PUDDING.AFTER MILVIAANCE LEFT-DIET ASSISTANT ASSISTED PT. TO BED @ 2214. BED ALARM PUT ON @ 2219.REFUSED PRAFO BOOT RIGHT FOOT.HEELS OFF BED @ 2219. TURNS SELF @ NIGHT.ON HOURLY ROUNDS.DIET ASSISTANT DOING ODD HOUR ROUNDS.
[2017-02-19 08:00] VITALS: BP 174/79
--- NOTE | 2017-02-19 16:52 | NUR ---
ASSUMMED CARE OF PT AT 0730, PT COMPLAINS OF NAUSEA, WANTS TO SLEEP, PT AWAKENED AT 0900 TO EAT BREAKFAST, PT ATE 100% OF MEAL AND SHORTLY AFTER COMPLAINED OF NAUSEA, MEDICATED PER ORDER, PT COMPLAINED OF DIZZINESS WITH THERAPY, DISCUSSED WITH PHYSICIAN, MECLIZINE OREDERED AND GIVEN TO PT, PT COMPLAINS OF DIZZINESS IN CHAIR AND WHEN LYING DOWN, DID STATE MEDICATION LESSENED DIZZINES BUT STILL PRESENT, BUTTOCKS PINK, ANTI FUNGAL BARRRIER CREAM APPLIED X 1, PT TRANSFERS WITH SBA, GB WALKER, AMBULATED INTO BATHROOM TO VOID, RIGHT CHEST DIALYSIS PORT INTACT, RAMIREZ PATENT AND DRAINING MARIANA URINE, PT TO HAVE DIALYSIS THIS EVENING. PT PARTICIPATED IN THERAPIES, HOURLY ROUNDING COMPLETED, ASSESSMENT COMPLETE, WILL CONTINUE TO MONITER.
[2017-02-19 21:59] VITALS: BP 167/85; BP 185/85
[2017-02-20] VITALS (8 sets, daily range): BP systolic 86–186; BP diastolic 48–87
--- NOTE | 2017-02-20 05:18 | NUR ---
PATIENT IN DIALYSIS @ 1934-02/19-SAT.SLEEPING W/ HOB UP.BACK TO ROOM @ 2145. RAMIREZ IN PLACE.HEELS OFF BED.CALLED FOR INC.BM @ 0026.BOWEL ACCIDENT X1.MONTSERRAT CARE DONE FOLLOWED BY ANTI-FUNGAL CREAM TO GROINS & BUTTOCKS.REFUSED CARDURA,ALDACTONE & HCTZ @ 2199.LATER @ 1-REQUESTED HCTZ FOR BP-198/88.PRN TYLENOL 2 TABS ORAL GIVEN @ 45-02/20-TUESDAY FOR C/O HEADACHES.ON HOURLY ROUNDS.HOME THERAPY TEACHER DOING ODD HOUR ROUNDS.TURNS SELF @ NIGHT.
--- NOTE | 2017-02-20 05:27 | NUR ---
STILL AWAKE @ 0000.SLEEPING SINCE 0200.TOOK ALL TURKEY SANDWICH,JELENA CRACKERS,PEACHES & DIET HOMERO HS SNACKS.DENIES DIZZINESS.DAILY WEIGHT-164.7-FOR 02/20-TUESDAY.
--- NOTE | 2017-02-20 16:59 | NUR ---
ASSUMED CARE AT 0730. ALERT ORIENTED PLEASANT COOPERATIVE. HX OF DEBILITY. ALSO ON RENAL DIALYSIS 3 X WEEK. PT. C/O FEELING DIZZY/ BUT DECLINED MECLIZINE THIS A.M. BP WAS ELEVATED AT 0600. TOOK ALL MEDS WITH BREAKFAST WITHOUT NAUSEA COMPLAINTS. TRANSFERS WITH SBA G BELT WALKER FROM BED TO RECLINER AND BACK TO BED. RAMIREZ PATENT WITH YELLOW URINE TO DD BAG. TURNS SELF IN BED INDEPENDENTLY. APPETITE GOOD BOTH MEALS UP IN RECLINER AT BEDSIDE. BP WAS LOW AT 1200 AND 1300 BUT BACK UP AT 1430 TO 165/[address] GUEVARA ROUNDED THIS AFTERNOON. BP RECHECKED 178/87 P 71 AT 1700 FOR COREG. MORE AWAKE AND TALKATIVE THIS AFTERNOON.
--- NOTE | 2017-02-21 01:27 | NUR ---
ASSUMED CARE @ 1927-02/20-TUESDAY.AWAKE IN BED ON HER LEFT SIDE-ON HER PHONE @ THIS TIME.HOB UP.RAMIREZ IN PLACE & PATENT.FOUR SIDERAILS PADDED.HEELS OFF BED. REFUSED PRAFO BOOT RIGHT FOOT.BED ALARM ALREADY ON @ 1927.DIALYSIS CATHETER IN PLACE.AT [id number].REFUSED 4 UNITS REGULAR INSULIN FOR SLIDING SCALE.AFRAID BLOOD SUGAR WILL DROP DOWN.REFUSED HS DOSE DAXA @ 2139. BP-126/72.NEW MED ORDERED FOR NORVASC 1.25 MG BID ENTERED LATE BY HIMS DR. BELTRE @ 2231.BP-184/81.TURNS SELF @ NIGHT.ON HOURLY ROUNDS.DOOR OPERATOR DOING ODD HOUR ROUNDS.
--- NOTE | 2017-02-21 05:37 | NUR ---
SLEEPING SINCE 0000.TURNS SELF @ NIGHT.INC LARGE,SOFT UNFORMED STOOLS @ 2109. MONTSERRAT CARE GIVEN.BOWEL ACCIDENT X1.
--- NOTE | 2017-02-21 07:29 | NUR ---
AWAKENED @ 0630 FOR MEDS.INC SMALL STOOLS 2ND TIME W/ BOWEL ACCIDENT #2 @ 0630.DAILY WEIGHT-167.4 LBS-FOR 02/21-TUESDAY.PRN ZOFRAN ORAL GIVEN @ 0642. TURNED SELF TO LEFT SIDE @ 0645.
[2017-02-21 07:30] VITALS: BP 164/76
--- NOTE | 2017-02-21 18:52 | NUR ---
ASSUMED CARE AT 0730. ALERT ORIENTED PLEASANT COOPERATIVE. HX OF DEBILITY. DID HAVE SOME EMESIS AFTER HER SHOWER WITH O.T. STATED DIDNT FEEL NAUSEOUS BEFORE SHE HAD ZOFRAN AND PHENERGAN EARLIER.A.M. PARTICIPATED IN THERAPIES THROUGHOUT THE DAY. APPETITE GOOD FED SELF AND TOOK MEDS WITHOUT DIFFICULTY. RAMIREZ PATENT WITH CLOUDY YELLOW URINE IN DD BAG. HAD 2 BMS TODAY ONE LARGE BROWN FORMED. AND 1 MOD SOFT FORMED BM. UP IN RECLINER WITH BLES ELEVATED.
[2017-02-21 19:53] VITALS: BP 176/85
--- NOTE | 2017-02-21 22:27 | NUR ---
ASSUMED CARE AT 1930. PATIENT S/P DEBILITY. RESTING IN RECLINER WITH BLE ELEVATED UNTIL AROUND 2200. UP WITH ONE, GAIT BELT, WALKER. TAKES PILLS IN PUDDING. BOX LUNCH GIVEN TO HER AT HS PER REQUEST. RAMIREZ DRAINING CLOUDY MARIANA URINE. DENIES PAIN. DENIES NAUSEA. TURNS SELF IN BED. HOURLY ROUNDING CONTINUES. BED ALARM ON. CALL LITE IN REACH.
[2017-02-22 02:17] VITALS: BP 178/85
--- NOTE | 2017-02-22 02:43 | NUR ---
WOKE UP C/O DIZZINESS. THINKING SHE WAS GOING TO HAVE A SEIZURE. NO SEIZURE ACTIVITY NOTED. PATIENT SPEECH CLEAR. C/O THAT SHE WAS NOT ON ENOUGH KEPPRA; THAT AT HOME SHE TOOK 1000 MG TWICE A DAY IN A LIQUID FORM. THIS NURSE REVIEWED RECORDS SENT FROM [facility] THAT STATE ON 4 DIFFERENT PAGES THAT RENAL (AT [facility]) HAD ADJUSTED THE DOSAGE. THERE WAS REFERENCE TO HER STATED HOME DOSE OF 1000 MG (10 ML OF 100 MG/ML) OF KEPPRA, BUT THAT IT WAS TO BE CHANGED TO 250 MG BID-- IT IS CURRENTLY ON THE MAR. THE DOSAGE OF KEPPRA 250 MG BID WAS ON MULTIPLE PAGES OF DISCHARGE ORDERS CONSISTENTLY. PATIENT GIVEN MECLIZINE. SEE MAR. THIS NURSE RETURNED AFTER REVIEWING CHART FROM [facility] AND FOUND PATIENT SLEEPING SOUNDLY. WILL PASS THIS ON IN THE MORNING. NO SEIZURE ACTIVITY NOTED. SIDE RAILS REMAIN PADDED. WILL CONTINUE TO MONITOR.
--- NOTE | 2017-02-22 05:21 | NUR ---
RETURNED TO SLEEP AFTER TAKING MECLIZINE. TURNS SELF, BUT DOES ASK FOR HELP TURNING AT TIMES. RAMIREZ DRAINING CLOUDY MARIANA URINE. NO FURTHER C/O SEIZURES AND NONE OBSERVED. NO C/O PAIN. HOURLY ROUNDS CONTINUE. CALL LITE IN REACH. BED ALARM ON.
[2017-02-22 05:46] LABS: HEMATOCRIT 32.5 % (37.0-47.0); HEMOGLOBIN 10.9 gm/dL (12.0-15.0); MCH 31.4 pg (26.0-34.0); MCHC 33.4 g/dL (28.0-37.0); MPV 8.4 fl. (7.2-11.1); RBC 3.46 mil/uL (4.20-5.00); RDW-CV 14.1 % (10.5-14.5); WBC 10.5 thou/uL (4.0-11.0)
[2017-02-22 05:53] LABS: CALCIUM 8.9 mg/dL (8.5-10.1); CREATININE 5.6 mg/dL (0.6-1.3); MAGNESIUM 1.8 mg/dL (1.8-2.4); POTASSIUM 5.2 mmol/L (3.5-5.1)
[2017-02-22 05:58] LABS: ALBUMIN 2.7 g/dL (3.4-5.0); CALCIUM 8.8 mg/dL (8.5-10.1); CREATININE 5.6 mg/dL (0.6-1.3); PHOSPHORUS* 5.7 mg/dL (2.5-4.9); POTASSIUM 5.3 mmol/L (3.5-5.1)
[2017-02-22 07:39] VITALS: BP 166/80
--- NOTE | 2017-02-22 10:31 | NUR ---
AND 'S OFFICE CALLED FOR ORDERS OF LAST DOSES OF KEPPRA. NOTIFIED AND NEW DOSAGE ORDERS GIVEN AND SENT TO PHARMACY. PHARMACY REPORTS THAT LIQUID KEPPRA IS AVALIABLE. PT INFORMED THAT DOSE TO BE GIVEN WHEN MEDICATION BROUGHT FROM PHARMACY TO EQUAL 1,000 ML MORNING DOSE.
--- NOTE | 2017-02-22 15:21 | NUR ---
IVAN called and spoke with IVAN Garcia from [facility] and then faxed information to [phone] for Radha to review for possible admission to [facility] dialysis [facility]. Radha to review tomorrow and follow up with IVAN. Clinic phone numbers [phone] and [phone].
--- NOTE | 2017-02-22 18:12 | NUR ---
PT HAS TOLERATED DIALYSIS WELL AND IS ALERT AND ORIENTATED UP TO CHAIR IN ROOM EATING SUPPER WITH . DIALYSIS CATHETER DRY AND INTACT TO RT. CHEST. PT DENIES PAIN OR DISCOMFORT. KEPPRA DOSEING TO BE DONE BY PHARMACY PER 'S ORDERS. PHARMACY CALLED AND STATED PT WILL PROBABLY RECEIVE LESS DOSE ON DAYS WHEN NOT RECEIVING DIALYSIS AND BID DOSES ON DIALYSIS DAYS AND THEY WILL TITRATE DOSEING DAILY.RAMIREZ TO DD WITH CLEAR YELLOW URINE WITH OCCASIONAL MUCOS NOTED IN TUBING. PT TRANSFERRS WELL WITH MIN ASSIST OF 1,WALKER AND GAITBELT. PT REMAINS ALERT AND ORIETNATED AND PROGRESSES TOWARDS GOALS. HOURLY ROUNDING CONTINUES.
[2017-02-22 20:08] VITALS: BP 100/58
--- NOTE | 2017-02-22 21:20 | NUR ---
LAYING ON LEFT SIDE STARTING TO DOZE OFF TO SLEEP. DENIES DISCOMFORT. RAMIREZ TO DD WITH YELLOW URINE AND SMALL AMOUNT OF WHITE SEDIMENT PARTICLES. INCONTINENT OF BOWEL. MONTSERRAT CARE PROVIDED. TOOK MEDS WHOLE IN VANILLA PUDDING.
--- NOTE | 2017-02-23 05:14 | NUR ---
INITIALLY HAD DIFFICULTY GETTING TO SLEEP. GIVING AMBIEN AND ASSISTING WITH REPOSITIONING PROVIDED RELIEF FROM SLEEPLESSNESS. INCONTINENT OF BOWEL TWICE MORE. MONTSERRAT CARE PROVIDED. MOISTURE BARRIER APPLIED. HOURLY ROUNDING IN PROGRESS.
[2017-02-23 07:38] VITALS: BP 145/72
--- NOTE | 2017-02-23 16:35 | NUR ---
SW reviewed team conference summary with pt. Plan for pt to dc home on Tuesday 02/28 and for pt son and/or fiance to attend family training prior to pt dc. Pt said she would talk with her son and either he will be here for FT on Tuesday at 10 am or Tuesday at 10 am. SW discussed with pt that SW faxed information to [facility] and still pending confirmation of pt chair available there and pt said she would consider [facility] as another choice because she knows there is a [facility] clinic close to her home. SW to send information to [facility] as well since [facility] is not responding. Pt in agreement with plan. SW to continue to follow to assist with safe dc planning.
--- NOTE | 2017-02-23 19:41 | NUR ---
I ASSUMED CARE OF THE PATIENT AT 0700. SHE IS ALERT AND ORIENTED X4. BED IS IN THE LOW LOCKED POSITION AND CALL LIGHT IS IN REACH. BED ALARM IS ON. HOURLY ROUNDING WAS COMPLETED AND PATIENT NEEDS WERE MET. IN TEAM MEETING, IT WAS DECIDED THAT SHE WOULD STAY UNTIL TUESDAY AND GOALS WILL BE REEVALUATED. BLOOD SUGAR WAS CHECKED ACHS. THEREAPIES WERE COMPLETED AND PAIN WAS DENIED. SHE TAKES HER PILLS WHOLE IN VANILLA PUDDING. DR MARQUEZ WAS CONTACTED IN REGARDS TO HER KEPRA DOSAGE. HE NEVER RETURNED MY CALLS. AFTER SPEAKING WITH DR CAIN AND THE DIALYSIS NURSE, I WAS ABLE TO DISCUSS THE DOSING WITH PATIENT. SHE NOW UNDERSTANDS TOXIC LEVELS, RENAL FUNCTION, ETC. SO SHE IS LESS AFRAID OF HAVING A SEIZURE SINCE HER MEDS WERE DECREASED. DR MARQUEZ IS HER SEIZURE SPECIALIST AT [facility]. SHE ALSO HAS AN ADDITIONAL DOSE OF KEPRA FOR POST-DIALYSIS ON . PATIENT'S FIANCE WAS AT THE BEDSIDE FOR A FEW HOURS. SHE WEARS A BRIEF AND IS INCONT OF BOWEL. SHE HAS A RAMIREZ. PATIENT ALSO STATES THAT HER BLOOD SUGARS HAVE BEEN WELL CONTROLLED SINCE SHE ARRIVED AND HAS BEEN ON A RENAL DIET. WILL CONTINUE TO MONITOR.
[2017-02-23 20:00] VITALS: BP 138/70
--- NOTE | 2017-02-24 00:36 | NUR ---
ASSUMED CARE AT 1930. PATIENT S/P DEBILITY. RESTING IN BED AT CHANGE OF SHIFT, BUT WAS INCONTINENT OF STOOL. ASSISTED WITH SKIN CARE AND PATIENT WANTED TO USE TOILET TO COMPLETE BM. SKIN CARE DONE AGAIN. ABLE TO WIPE SELF, BUT WANTS NURSING TO DO RAMIREZ CARE. MOISTURE BARRIER APPLIED. SKIN MUCH IMPROVED. TAKES PILLS WHOLE IN PUDDING. DIALYSIS CATH DRESSING C/D/I. CLEAR OPSITE DRESSING APPLIED TO RIGHT NECK WHERE SCAB "CATCHES ON THINGS" PER HER REQUEST. DENIES NAUSEA OR DIZZINESS. NO C/O PAIN. SLEEPING PILL GIVEN WITH GOOD RESULTS. REFUSES TURNS. TURNS SELF. SLEEPING ON LEFT SIDE. HOURLY ROUNDS CONTINUE. CALL LITE IN REACH. BED ALARM ON.
[2017-02-24 05:33] LABS: HEMATOCRIT 32.8 % (37.0-47.0); HEMOGLOBIN 10.9 gm/dL (12.0-15.0); MCH 31.5 pg (26.0-34.0); MCHC 33.2 g/dL (28.0-37.0); MCV 94.7 fL (80.0-100.0); MPV 8.5 fl. (7.2-11.1); RBC 3.46 mil/uL (4.20-5.00); RDW-CV 14.1 % (10.5-14.5); WBC 9.5 thou/uL (4.0-11.0)
[2017-02-24 05:53] LABS: ALBUMIN 2.7 g/dL (3.4-5.0); CREATININE 5.1 mg/dL (0.6-1.3); PHOSPHORUS* 5.7 mg/dL (2.5-4.9); POTASSIUM 5.5 mmol/L (3.5-5.1)
--- NOTE | 2017-02-24 06:17 | NUR ---
SLEPT MOST OF THE NIGHT. TURNS SELF, AND PREFERS TO SLEEP ON LEFT SIDE. REFUSES ASSIST WITH TURNS. RAMIREZ DRAINING CLOUDY MARIANA URINE. NO C/O PAIN. HOURLY ROUNDS CONTINUE. BED ALARM ON. CALL LITE IN REACH.
[2017-02-24 08:02] VITALS: BP 137/74
--- NOTE | 2017-02-24 10:05 | NUR ---
SW was informed that pt son confirmed he will be here for Family Training on Tuesday at 10 am prior to pt dc home that day.
--- NOTE | 2017-02-24 11:47 | NUR ---
AM ASSESSMENT AND VITAL SIGNS COMPLETED DOCUMENTED. PT HAS BEEN OUT OF BED AND PARTICIPATING WITH THERAPIES TODAY. NO C/O PAIN, NAUSEA OR DIZZINESS AT THIS TIME. FALL PRECAUTIONS AND HOURLY ROUNDING CONTINUE.
--- NOTE | 2017-02-24 15:04 | NUR ---
PT TRANSPORTED TO DIALYSIS ROOM FOR SCHEDULED TREATMENT.
--- NOTE | 2017-02-24 16:50 | NUR ---
IVAN tried to follow up with [facility] to no avail, IVAN discussed referral with [facility] at pt request of second choice for dialysis clinic, and IVAN faxed needed information to [facility] Admissions. IVAN received call back from [facility] who provided a tentative MWF 2:45pm chair time and will confirm with SW tomorrow. SW to continue to follow to assist with safe dc planning for Tuesday 02/28.
[2017-02-24 20:45] VITALS: BP 190/85
--- NOTE | 2017-02-25 05:33 | NUR ---
ASSUMED CARES AT 1920. PT RETURNED FROM DIALYSIS AT 1900. ALERT AND ORIENTED. NO COMPLAINTS OF PAIN. SUPPER GIVEN ALONG WITH BOXED LUNCH PER PT REQUEST. TAKES PILLS WHOLE IN VANILLA PUDDING. RAMIREZ CATHETER DD YELLOW URINE. REFUSED OFF LOADING BOOT TO RLE. LEGS UP ONTO PILLOW. PT TURNS SELF IN BED. HAD STOOL INCONTINENCE X 2. STAFF ASSISTED WITH ALL CARES. BUTTOCKS PINK, BARRIER CREAM APPLIED. SLEPT MOST OF THE NIGHT. CALL LIGHT IN REACH. BED ALARM ON.
[2017-02-25 07:30] VITALS: BP 159/75
--- NOTE | 2017-02-25 16:54 | NUR ---
IVAN followed up with Radha MAR, and with [facility] Admissions who were both working on whether or not they would be able to accept pt for dialysis upon pt dc from rehab unit. SW received approval from [facility] and can begin OP dialysis with pt on TThSa at Noon pending receiving chest x ray or TB test, and current Hep B surface and core antibody labs as well as copy of pt insurance cards. IVAN discussed with nursing and messaged to Dr Gonzalez of need of labs ordered and IVAN will provide results to [facility] dialysis on Tuesday morning. IVAN will continue to follow to assist with safe dc planning.
--- NOTE | 2017-02-25 18:42 | NUR ---
AM ASSESSMENT AND VITAL SIGNS COMPLETED DOCUMENTED. PT PARTICIPATED IN THERAPIES WITH OCCASIONAL C/O NAUSEA. PRN ZOFRAN GIVEN AT HER REQUEST. PT CONTINUES TO EAT 100% OF ALL MEALS AND IS HAVING 2-3 BM's DAILY. THIS PM PT IS SITTING IN THE RECLINER AND STATES SHE MAY BE GETTING SICK. PT ENCOURAGED TO TRY TO GET SOME EXTRA REST TONIGHT. FALL PRECAUTIONS AND HOURLY ROUNDING CONTINUES.
[2017-02-25 21:14] VITALS: BP 174/88
[2017-02-26 04:07] LABS: PHOSPHORUS* 6.1 mg/dL (2.5-4.9); POTASSIUM 5.5 mmol/L (3.5-5.1)
--- NOTE | 2017-02-26 05:57 | NUR ---
ASSUMED CARE OF PT AT 1930. GAVE TYLENOL FOR C/O SORE THROAT AND AMBIEN FOR C/O RESTLESSNESS WITH GOOD RESULTS. VIEWED THROAT WITH A FLASH LIGHT. NO REDNESS SEEN. RAMIREZ TO DD WITH SLIGHTLY CLOUDY/YELLOW URINE. TAKES PILLS ONE AT A TIME WITH VANILLA PUDDING. CAN TAKE SMALL PILLS ONE AT A TIME WITH WATER. HOURLY ROUNDING IN PROGRESS.
[2017-02-26 08:08] VITALS: BP 169/82
--- NOTE | 2017-02-26 18:44 | NUR ---
PT HAS RETURNED FORM DIALYSIS AND HAS C/O PAIN IN RT. HIP FEELING LIKE IT IS IN HER BONE AND RATES IT A 8. NOTIFIED AND ORDERS FOR 1 TIME VICODIN GIVEN. PT RESTS NOW WITH SO AT SIDE AFTER RECIEVING VICODIN. PT IS ALERT AND ORIENTATED. RAMIREZ TO DD WITH LIGHT YELLOW URINE PRESENT WITH OCCASIONAL MUCOS NOTED. PT HAS EATEN SUPPER AND TOLERATED WELL. DIALYSIS CATHETER WITH DRESSING DRY AND INTACT. PT PROGRESSES TOWARDS GOALS.
--- NOTE | 2017-02-26 19:45 | NUR ---
INCONTINENT OF SMALL BM. MONTSERRAT CARE PROVIDED BY SHIFT PRODUCTION SUPERVISOR. RAMIREZ TO DD WITH YELLOW URINE. IN GOOD SPIRITS TONIGHT. TOOK MEDS WHOLE WITH VANILLA PUDDING.
[2017-02-26 20:15] VITALS: BP 171/77
--- NOTE | 2017-02-27 05:32 | NUR ---
GIVEN TYLENOL AT 2154 FOR C/O RIGHT HIP PAIN WITH RELIEF. GAVE TYLENOL AT 0311 FOR C/O SORE THROAT WITH RELIEF. ALSO GAVE ZOFRAN FOR C/O NAUSEA WITH RELIEF. INCONTINENT OF BM DURING THE NIGHT MONTSERRAT CARE GIVEN. HOURLY ROUNDING IN PROGRESS.
[2017-02-27 08:07] VITALS: BP 145/69
[2017-02-27 17:45] VITALS: BP 68/41
--- NOTE | 2017-02-27 18:17 | NUR ---
PT HAS BEEN UP TO CHAIR FOR MEALS BUT STATES SHE IS SICK AND HAS A HEADACHE AND RT.HIP PAIN AND SORE THROAT THIS AM. MADE AWARE AND ORDERED COLD MEDICATIONS. PT EATS 25-50% OF MEALS AND REPORTS NAUSEA WITH MEDICATION GIVEN. PT DID HAVE SMALL EMISIS OF SOFT UNDIGESTED FOOD. PT HAS RESTED IN BED AND NAPPED AND IS ENCOURAGED TO DRINK MORE FLUIDS BUT PT STATES SHE CANNOT DUE TO DIALYSIS. RAMIREZ TO DD WITH CLEAR YELLOW URINE ADEQUATE AMOUNT NOTED. PT HAD SMALL FORMED BM THIS AFTERNOON WHILE SITTING IN RECLINER. PT HAS COUGH AND IS GIVEN COUGH MEDICATION THIS EVENING. PB IS LOW THIS EVENING AND CORREG IS HELD.TEMP CHECKED WITH NO ELEVATION.PT DENIES DIZZINESS OR SYMPTOMS OF LOW BP.PT WATCHING TV UP TO RECLINER. PT IS ALERT AND ORIENTATED. HOURLY ROUNDING CONTINUES.
[2017-02-27 20:10] VITALS: BP 193/95
--- NOTE | 2017-02-27 20:40 | NUR ---
RESTING QUIETLY ON LEFT SIDE. RAMIREZ TO DD WITH CLOUDY/YELLOW URINE. REFUSED SS INSULIN DUE TO NOT EATING MUCH. DID TAKE LEVEMIR. TOOK MEDS WHOLE WITH VANILLA PUDDING.
--- NOTE | 2017-02-28 04:49 | NUR ---
PAIN MED GIVEN AT 0002 FOR C/O RIGHT HIP PAIN AND SORE THROAT WITH RELIEF. HOURLY ROUNDING IN PROGRESS.
--- NOTE | 2017-02-28 10:43 | NUR ---
Pt to dc home with family today. Family training completed today. Pt declining HH services be arranged. SW arranged for dialysis, pt accepted at [facility] in [place] off of [address], near pt home at pt request. Dr Hernandez accepting physician. Chair time Tue//Sat at Noon. SW faxed needed labs and info, and SW to fax chest x-ray paxton prior to pt dc. Pt has needed DME and SW discussed community resources. Pt son and fiance to provide pt transportation home.
[2017-02-28 10:45] VITALS: BP 149/77; BP 71/40
[2017-02-28 10:48] VITALS: BP 135/61
[2017-02-28] MEDS ORDERED: LASIX 80 MG TAB80 MG PO (15:33)
[2017-02-28] MEDS ORDERED: MUCINEX1200 MG PO (15:36)
[2017-02-28] MEDS ORDERED: ZOFRAN ODT4 MG DISSOLVE (15:37)
[2017-02-28] MEDS ORDERED: NORVASC2.5 MG PO (15:39)
[2017-02-28] MEDS ORDERED: CARDURA4 MG PO (15:42)
[2017-02-28] MEDS ORDERED: REGLAN 10 MG TA10 MG PO (15:44)
[2017-02-28] MEDS ORDERED: NOVOLIN R100 UNIT/1 (15:47)
[2017-02-28] MEDS ORDERED: PHENERGAN 25 MG25 M1 PO (15:57)
[2017-02-28 15:59] VITALS: BP 135/61
[2017-02-28 17:30] VITALS: BP 135/63
[2017-02-28] MEDS ORDERED: KEPPRA 500 MG500 M1 PO (18:05)
--- NOTE | 2017-02-28 18:06 | NUR ---
ASSUMED CARE AT 0730. ALERT ORIENTED PLEASANT COOPERATIVE. HX OF DEBILITY. PT. IS C/O SORE THROAT COUGH LUNGS CLEAR. TOOK MUCINEX SCHEDULED AND ALSO CEPACOL LOZENZES PO PRN. VERY SLOW IN GETTING MINUTES DONE WITH THERAPIES. VS WNL RAMIREZ PATENT WITH CLOUDY YELLOW URINE TO DD BAG. TRANSFERS WITH SBA G BELT WALKER. DENIES PAIN REQUIRING PRN MEDS. ORDERS RECEIVED AND WERE GIVEN TO FIANCEE AND PT. VERBALIZED UNDERSTANDING AND ALLOWED TIME FOR QUESTIONS TO BE ANSWERED. PT. SLEPT MOST OF AFTERNOON AFTER THERAPIES COMPLETED. PT. IS ON DIALYSIS 3 X WEEK AND WILL BE DOING SO AFTER D/C.
[2017-02-28 18:30] VITALS: BP 135/61
--- NOTE | 2017-03-09 14:12 | PLAN ---
[address] [address] REHAB UNIT PLAN OF CARE Name: EZEQUIEL MOYA Room: [address] IN [facility]#: [id number] Admission: 02/10/17 Attend Phys: Iona Gonzalez, Discharge: 02/28/17 Date of : 63 Report #: [id number] THIS REPORT FOR: //name// CC: Demetrius Gonzalez OVERALL PLAN OF CARE This is a 52-year-old female with significant debility, status post acute hospital stay, where she was diagnosed with end-stage renal disease and is now on hemodialysis on Tuesday, and Tuesday. She has multiple medical comorbidities requiring acute daily care. She will be on a low endurance protocol. MEDICAL PROGNOSIS: Fair. REHABILITATION PROGNOSIS: Fair. Estimated length of stay is 16-18 days with discharge disposition to the home setting with supportive family. Previous level of function was modified independent to independent with activities of daily living. Current level of function is minimum assistance of 1-2 depending on therapy, activity and time of day. Physical therapy will see the patient 60-90 minutes per day, 5 days per week, working on upper and lower body strength, balance, coordination, navigation. Occupational therapy will work with the patient 60-90 minutes per day, 5 days per week, work on upper and lower body strength, balance, coordination, navigation, bathing, dressing, and toileting. Speech language pathology will work with the patient 30-90 minutes per day, 5 days per week, working on memory, comprehension, expression and social interaction. This is an overall plan of care, may change from time to time. We will team weekly and make changes to the plan of care as needed. <ELECTRONICALLY SIGNED> By: Iona Gonzalez DO 03/09/17 1412 [id number] Gonzalez DO /nt
--- NOTE | 2017-03-09 14:12 | H ---
[address] [address] HISTORY AND PHYSICAL Name: EZEQUIEL MOYA Room: [address] IN [place]#: [id number] Admission: 02/10/17 Attend Phys: Iona Gonzalez DO Discharge: 02/28/17 Date of : 63 Report #: [id number] THIS REPORT FOR: //name// CC: Demetrius Gonzalez DATE OF SERVICE: 02/10/2017 HISTORY OF PRESENT ILLNESS: This is a 52-year-old female with end-stage renal disease, on dialysis, who presented to [facility] on 01/28/2017, with shortness of air and edema. She was found to have a creatinine of 4.8 and a glucose of 331 with a hemoglobin of 8.5. She has multiple medical comorbidities and is significantly debilitated. No significant changes since the preadmission screening. Previous level of function was modified independent to independent with activities of daily living. Current level of function is minimum assistance of 1-2 depending on therapy, activity and time of day. She does currently have a Shi with mild impairment of comprehension, expression, social interaction, problem solving and memory. She lives in a mobile home, 6 steps to enter. She does have family that can assist her. Estimated length of stay is 16-18 days with discharge disposition to the home setting with supportive family. PAST MEDICAL HISTORY: Hypertension, diabetes, KWADWO, chronic kidney disease, now on dialysis; acute renal failure, PVD, history of CVA, anemia, asthma, chronic edema, C. diff, esophagitis, chronic fatigue, gastroparesis, GERD, hyperlipidemia, hypothyroid, neuropathy, seizures, thyroid nodule, urinary incontinence, benign colon polyps, and diabetic retinopathy. PAST SURGICAL HISTORY: Appendectomy, , hysterectomy, colectomy, tracheostomy, and an I and D of an abscess. ALLERGIES: LIDOCAINE, MARGARITA INHIBITORS, CIPRO, GENTAMICIN, MORPHINE, OPIOIDS, OXYCODONE and NICKEL. SOCIAL HISTORY: Former tobacco, no alcohol or illicit drug use. REVIEW OF SYSTEMS: A 14-point review of systems is done and is negative except as mentioned in the HPI, specifically no fevers, chest pain, shortness of breath, abdominal pain, or distention. PHYSICAL EXAMINATION: GENERAL: Alert, oriented, in no apparent distress. VITAL SIGNS: Reviewed and are stable. HEENT: Head atraumatic, normocephalic. Pupils are equal, round, reactive. ABDOMEN: Soft, nontender, nondistended. NEUROLOGIC: Cranial nerves 2-12 are grossly intact [place] [address] HISTORY AND PHYSICAL Name: EZEQUIEL MOYA Room: [address] IN [facility].#: [id number] Admission: 02/10/17 Attend Phys: Iona Gonzalez DO Discharge: 02/28/17 Date of : 63 Report #: [id number] deficits. SKIN: She does have bilateral buttock wounds. ASSESSMENT: 1. Debility, end-stage renal disease, on hemodialysis Tuesday, and Tuesday. 2. Multiple medical comorbidities requiring daily acute medical care including hypertension, uncontrolled diabetes, wounds, Clostridium difficile, anemia, and asthma. PLAN: 1. She is a DNR. 2. She will be on a low sodium diet. 3. PT, OT, speech, language, case management, nursing and HIMS to make evaluations and recommendations. 4. Low endurance protocol due to her dialysis schedule. 5. C. diff precautions. 6. Medications were reviewed, reconciled by myself and are available in the MAR. 7. Plan of care is pending and we will team her weekly. <ELECTRONICALLY SIGNED> By: Iona Gonzalez DO 03/09/17 1412 1820 [id number] Gonzalez DO /nt
--- NOTE | 2017-04-06 13:45 | D ---
[facility] [address] [place] [address] DISCHARGE SUMMARY Name: EZEQUIEL MOYA Room: [address] IN M.R.#: [id number] Admission: 02/10/17 Attend Phys: Iona Gonzalez DO Discharge: 02/28/17 Date of : 63 Report #: [id number] THIS REPORT FOR: //name// CC: Demetrius Gonzalez DATE OF SERVICE: 02/28/2017 DISCHARGE DIAGNOSIS: Debility status post end-stage renal disease, on hemodialysis. Discharge disposition is to home with home health PT, OT and nursing. She will also continue her dialysis schedule. Wound care did see her for bilateral buttock wounds. She also had a history of C. diff. She will go home on a renal diet and fall precautions. She will follow up with her primary care physician within 1 week. Medications were reviewed, reconciled by myself and are available in the MAR. DISCHARGE PHYSICAL EXAMINATION: SKIN: Warm and dry. Buttock wounds are noted. MUSCULOSKELETAL: 5/5 strength in the bilateral upper and lower extremities. <ELECTRONICALLY SIGNED> By: Iona Gonzalez DO 04/06/17 1345 1552 [id number] Gonzalez DO /nt
[2017-08-23] MEDS ORDERED: DIOVAN HCT 1601 EAC1 (13:33)
[2017-08-23] MEDS ORDERED: augmentin (13:34)
== END 2017-02-28 18:30 | disposition home or self-care (01) | DRG 947 ==
LOC: M.REH 16:05
PROVIDERS: Family Medicine; Internal Medicine; Internal Medicine Nephrology; ADMIT Physical Medicine & Rehabilitation
PROC: 5A1D70Z Performance of Urinary Filtration, Intermittent, Less than 6 Hours Per Day (ICD-10-PCS; 2017-02-12)
PROC: 0HBRXZZ Excision of Toe Nail, External Approach (ICD-10-PCS; principal; 2017-02-15)
PROC: 5A1D70Z Performance of Urinary Filtration, Intermittent, Less than 6 Hours Per Day (ICD-10-PCS; 2017-02-15)
PROC: 5A1D70Z Performance of Urinary Filtration, Intermittent, Less than 6 Hours Per Day (ICD-10-PCS; 2017-02-17)
PROC: 5A1D70Z Performance of Urinary Filtration, Intermittent, Less than 6 Hours Per Day (ICD-10-PCS; 2017-02-19)
PROC: 5A1D70Z Performance of Urinary Filtration, Intermittent, Less than 6 Hours Per Day (ICD-10-PCS; 2017-02-23)
PROC: 5A1D70Z Performance of Urinary Filtration, Intermittent, Less than 6 Hours Per Day (ICD-10-PCS; 2017-02-24)
PROC: 5A1D70Z Performance of Urinary Filtration, Intermittent, Less than 6 Hours Per Day (ICD-10-PCS; 2017-02-26)
DX: R53.81 Other malaise (principal); N18.6 End stage renal disease; I12.0 Hypertensive chronic kidney disease with stage 5 chronic kidney disease or end stage renal disease; N17.9 Acute kidney failure, unspecified; G47.33 Obstructive sleep apnea (adult) (pediatric); E11.22 Type 2 diabetes mellitus with diabetic chronic kidney disease; E11.51 Type 2 diabetes mellitus with diabetic peripheral angiopathy without gangrene; E11.40 Type 2 diabetes mellitus with diabetic neuropathy, unspecified; E11.319 Type 2 diabetes mellitus with unspecified diabetic retinopathy without macular edema; J45.909 Unspecified asthma, uncomplicated; K21.9 Gastro-esophageal reflux disease without esophagitis; E78.5 Hyperlipidemia, unspecified; E03.9 Hypothyroidism, unspecified; F32.9 Major depressive disorder, single episode, unspecified; E11.65 Type 2 diabetes mellitus with hyperglycemia; Z66 Do not resuscitate; E11.43 Type 2 diabetes mellitus with diabetic autonomic (poly)neuropathy; K31.84 Gastroparesis; R53.1 Weakness; E86.9 Volume depletion, unspecified; D63.1 Anemia in chronic kidney disease; R60.9 Edema, unspecified; R11.0 Nausea; B35.1 Tinea unguium; B96.89 Other specified bacterial agents as the cause of diseases classified elsewhere; J06.9 Acute upper respiratory infection, unspecified; M79.606 Pain in leg, unspecified; Z88.1 Allergy status to other antibiotic agents; Z99.2 Dependence on renal dialysis; Z86.73 Personal history of transient ischemic attack (TIA), and cerebral infarction without residual deficits; Z90.49 Acquired absence of other specified parts of digestive tract; Z90.710 Acquired absence of both cervix and uterus; Z88.6 Allergy status to analgesic agent; Z88.8 Allergy status to other drugs, medicaments and biological substances; Z87.891 Personal history of nicotine dependence; Z93.0 Tracheostomy status; Z93.1 Gastrostomy status; Z79.82 Long term (current) use of aspirin; Z79.4 Long term (current) use of insulin; Z79.899 Other long term (current) drug therapy; Z82.49 Family history of ischemic heart disease and other diseases of the circulatory system

== ENCOUNTER → 2017-08-24 | Outpatient (CLI) | payer MEDICARE ==
[~2017-08-24] VITALS: Ht 165.1 cm; Wt 72.6 kg
[~2017-08-24] MED LIST changes: +ALDACTONE25 MG PO; +CARDURA4 MG PO; +CARVEDILOL12.5 MG PO; +CIPROFLOXIN HC2.5 M1 OPHTHALMIC; +DEMADEX20 MG PO; +DIOVAN HCT 1601 EAC1; +DUREZOL5 ML OPHTHALMIC; +ILEVRO1.7 ML OPHTHALMIC; +KEPPRA 500 MG500 M1 PO; +LAMICTAL100 MG PO; +LASIX 80 MG TAB80 MG PO; +MUCINEX1200 MG PO; +NORVASC2.5 MG PO; +NOVOLIN R100 UNIT/1; +PHENERGAN 25 MG25 M1 PO; +ZOCOR20 MG PO; +ZOFRAN ODT4 MG DISSOLVE; +augmentin
[2017-08-24 12:00] VITALS: BP 190/88
--- NOTE | 2017-08-24 13:21 | OP ---
[facility] [address] [place] [address] OPERATIVE REPORT Name: EZEQUIEL MOYA Room: [facility]#: [id number] Admission: 08/24/17 Attend Phys: Andrea Ahmadi DO Discharge: Date of : 63 Report #: [id number] THIS REPORT FOR: //name// CC: Demetrius Ahmadi DATE OF SERVICE: 08/24/2017 PREOPERATIVE DIAGNOSES: End-stage renal disease with malfunctioning left upper extremity arteriovenous fistula. POSTOPERATIVE DIAGNOSIS: End-stage renal disease with malfunctioning left upper extremity arteriovenous fistula. OPERATION: 1. Retrograde ultrasound-guided access to left upper extremity fistula. 2. Left upper extremity fistulogram. 3. Trocar balloon angioplasty of the cephalic vein with a Lutonix 6 mm drug-coated balloon. SURGEON: Andrea Ahmadi DO. LOG ROLLER: ORT. ANESTHESIA: Sedation with local. ESTIMATED BLOOD LOSS: 25 mL. FLUIDS: 100 crystalloid. URINE OUTPUT: None. SPECIMENS: None. COMPLICATIONS: None. IMPLANTS: None. FINDINGS: Ultrasound demonstrated patent fistula that was accessed in a retrograde fashion. Initial fistulogram demonstrated diffuse high-grade stenosis from the anastomosis to the mid portion of the cephalic vein. There was no central venous stenosis. There was a little bit of spasm in the cephalic vein after instrumentation, but there was an excellent thrill within the fistula. After balloon angioplasty, the cephalic vein anastomosis with a Lutonix drug-coated balloon, there was an excellent result with minimal residual stenosis. [facility] [address] [place] [address] OPERATIVE REPORT Name: EZEQUIEL MOYA Room: [facility]#: [id number] Admission: 08/24/17 Attend Phys: Andrea Ahmadi DO Discharge: Date of : 63 Report #: [id number] CLINICAL HISTORY: The patient with end-stage renal disease and has been dialyzing through a left upper extremity fistula. They have been having issues with it on dialysis and had recently been having to use her catheter to complete her dialysis sessions. She is brought in today for fistulogram and intervention. DESCRIPTION OF PROCEDURE: After informed consent was obtained, the patient was taken to the angio suite, placed on the angio bed in the supine position. She was administered sedation by the nurse at my discretion, monitoring all vitals as appropriate for a total of 45 minutes. I used ultrasound guidance and accessed the fistula in the upper arm in a retrograde fashion using micropuncture technique, preserving ultrasound images. I was then able to advance wire and a microsheath and performed a left upper extremity fistulogram with the findings noted above. I then exchanged out for a Bentson wire and Kumpe catheter, positioned the wire in the proximal brachial artery. Catheter position confirmed intraluminal position within the brachial artery proximal. The wire was replaced. I then angioplastied the cephalic vein from the anastomosis in the mid portion, first with a 6 mm Elmer balloon, followed by 6 mm Lutonix drug-coated balloon with a good result. There was minimal residual stenosis, much improved thrill within the fistula. At this point, 3-0 Monocryl pursestring suture was placed around the sheath. The wire and the sheath were removed, suture secured. Manual pressure was held for 5 minutes. Once hemostasis was ensured at the puncture site, sterile dressing was applied. All sponge, sharp and instrument counts reported correct x 2. She tolerated the procedure well and was transferred to recovery in stable condition. <ELECTRONICALLY SIGNED> By: Andrea Ahmadi DO 08/24/17 1321 1142 [id number] Ahmadi DO /nt
== END | disposition home or self-care (01) ==
LOC: M.INT 09:38
DX: T82.590A Other mechanical complication of surgically created arteriovenous fistula, initial encounter (principal); I12.0 Hypertensive chronic kidney disease with stage 5 chronic kidney disease or end stage renal disease; N18.6 End stage renal disease; E03.9 Hypothyroidism, unspecified; E78.5 Hyperlipidemia, unspecified; I73.9 Peripheral vascular disease, unspecified; G47.33 Obstructive sleep apnea (adult) (pediatric); E10.9 Type 1 diabetes mellitus without complications; J45.909 Unspecified asthma, uncomplicated; Z90.49 Acquired absence of other specified parts of digestive tract; Z90.710 Acquired absence of both cervix and uterus; Z86.73 Personal history of transient ischemic attack (TIA), and cerebral infarction without residual deficits; Z88.8 Allergy status to other drugs, medicaments and biological substances; Z79.82 Long term (current) use of aspirin; Z79.899 Other long term (current) drug therapy; Z79.4 Long term (current) use of insulin